=== PATIENT | female | born 1985 | race Caucasian/White ===

== ENCOUNTER → 2017-06-10 | Outpatient (CLI) | payer BC ==
--- NOTE | 2017-06-10 11:53 | RAD ---
Indication: Left neck lump posteriorly. Sonographic interrogation of the area of lump in the posterior left neck was performed. There is a lymph node in the superficial tissues at this location measuring 1.5 x 0.9 x 0.4 cm. No other abnormality is identified. Impression: Small lymph node at the area of palpable abnormality posterior left neck, as described.
== END | disposition home or self-care (01) ==
LOC: US 10:47
PROVIDERS: ATTEND Family Medicine
DX: R22.1 Localized swelling, mass and lump, neck (principal)
CPT/HCPCS: 76536

== ENCOUNTER 2020-10-11 15:30 | Emergency (ER) | payer BC, OTHER ==
[~2020-10-11] VITALS: Ht 154.9 cm; Wt 48.2 kg
[2020-10-11 15:44] VITALS: BP 114/77
[2020-10-11] MEDS ORDERED: DEXAMETHASONE 4 MG TABLET PO ONE (16:00)
[2020-10-11] MEDS ORDERED: ORPHENADRINE CITRATE 60 MG/2 ML VIAL. IM ONE (16:00)
[2020-10-11] MEDS ORDERED: KETOROLAC 30 MG/ML VIAL. IM ONE (16:00)
--- NOTE | 2020-10-11 16:04 | PHYS DOC ---
Past History Past Medical History: Anxiety, Other Additional Past Medical Histor: degenerative disc dz Past Surgical History: , Other Additional Past Surgical Histo: right hand surgery Alcohol Use: None General Adult EDM: Chief Complaint: UPPER EXTREMITY PAIN HPI: HPI: Patient is a [age] year old [sex] who presents with [] Review of Systems: Review of Systems: Constitutional: Denies fever or chills Eyes: Denies change in visual acuity HENT: Denies nasal congestion or sore throat Respiratory: Denies cough or shortness of breath Cardiovascular: Denies chest pain or edema GI: Denies abdominal pain, nausea, vomiting, bloody stools or diarrhea : Denies dysuria Musculoskeletal: Denies back pain or joint pain Integument: Denies rash Neurologic: Denies headache, focal weakness or sensory changes Endocrine: Denies polyuria or polydipsia Lymphatic: Denies swollen glands Psychiatric: Denies depression or anxiety Allergies: Allergies: Allergies Coded Allergies Type Severity Reaction Last Updated Verified Penicillins Allergy Severe anaphylaxis 10/11/20 Yes aspirin Allergy Mild N/V 10/11/20 Yes Physical Exam: PE: Constitutional: Well developed, well nourished, no acute distress, non-toxic appearance. [] HENT: Normocephalic, atraumatic, bilateral external ears normal, oropharynx moist, no oral exudates, nose normal. [] Eyes: PERRLA, EOMI, conjunctiva normal, no discharge. [] Neck: Normal range of motion, no tenderness, supple, no stridor. [] Cardiovascular:Heart rate regular rhythm, no murmur [] Lungs & Thorax: Bilateral breath sounds clear to auscultation [] Abdomen: Bowel sounds normal, soft, no tenderness, no masses, no pulsatile masses. [] Skin: Warm, dry, no erythema, no rash. [] Back: No tenderness, no CVA tenderness. [] Extremities: No tenderness, no cyanosis, no clubbing, ROM intact, no edema. [] Neurologic: Alert and oriented X 3, normal motor function, normal sensory function, no focal deficits noted. [] Psychologic: Affect normal, judgement normal, mood normal. [] Current Patient Data: Vital Signs: Vital Signs Date Time Temp Pulse Resp B/P (MAP) Pulse Ox O2 Delivery O2 Flow Rate FiO2 10/11/20 15:44 98.2 100 20 114/77 (89) 99 Room Air EKG: EKG: [] Radiology/Procedures: Radiology/Procedures: [] Heart Score: Risk Factors: Risk Factors: DM, Current or recent (<one month) smoker, HTN, HLP, family history of CAD, obesity. Risk Scores: Score 0 - 3: 2.5% MACE over next 6 weeks - Discharge Home Score 4 - 6: 20.3% MACE over next 6 weeks - Admit for Clinical Observation Score 7 - 10: 72.7% MACE over next 6 weeks - Early Invasive Strategies Course & Med Decision Making: Course & Med Decision Making Pertinent Labs and Imaging studies reviewed. (See chart for details) [] Dragon Disclaimer: Dragon Disclaimer: This electronic medical record was generated, in whole or in part, using a voice recognition dictation system. Departure Departure: Impression: Primary Impression: Cervical radiculopathy Disposition: 01 DC HOME SELF CARE/HOMELESS Condition: STABLE Referrals: BEA YEPEZ (PCP) Patient Instructions: Arm Sling Use, [id number], Cervical Radiculopathy, [id number] Additional Instructions: ICE areas of discomfort 20 min on then leave off next 20 min. Repeat several times daily as needed for pain for next few days. Use sling for comfort only. Please drop arm out of sling at least 5x daily. Each time do 10x circles in one direction then repeat 10x in other direction. This prevents a "FROZEN SHOULDER Call Dr. Fausto Saucedo (pain management) for further evaluation and treatment. Address: [address] [place] [address], [place] [address] Scripts Tramadol Hcl (TRAMADOL HCL) 50 Mg Tablet 50 MG PO PRN Q6HRS PRN for PAIN, #14 TAB Take each tablet with one (1) regular strength Tylenol 325mg Prov: ANGI BOSS DO 10/11/20 Orphenadrine Citrate (ORPHENADRINE CITRATE) 100 Mg Tablet.er 1 TAB PO BID PRN for MUSCLE PAIN, #14 TAB 0 Refills Prov: ANGI BOSS DO 10/11/20 Prednisone (PREDNISONE) 20 Mg Tablet 2 TAB PO DAILY for Radiculopathy, #8 TAB Start this prescription tomorrow, 10/12/20 Prov: ANGI BOSS DO 10/11/20 ANGI BOSS DO Oct 11, 2020 16:04
[2020-10-11] MEDS ORDERED: TRAM50TA PO (16:07)
[2020-10-11] MEDS ORDERED: ORPH-16 PO (16:07)
[2020-10-11] MEDS ORDERED: PRED20TA PO (16:07)
== END 2020-10-11 16:30 | disposition home or self-care (01) ==
LOC: ER 15:30
DX: M54.12 Radiculopathy, cervical region (principal); F41.9 Anxiety disorder, unspecified; Z88.6 Allergy status to analgesic agent; Z88.0 Allergy status to penicillin
CPT/HCPCS: 96372; 99284; J1885; J2360; J8540

== ENCOUNTER 2020-10-31 09:27 | Emergency (ER) | payer OTHER ==
[~2020-10-31] VITALS: Ht 154.9 cm; Wt 48.2 kg
[~2020-10-31 09:27] MED LIST: ORPH-16 PO; PRED20TA PO; TRAM50TA PO
[2020-10-31 13:05] VITALS: BP 121/73
== END 2020-10-31 13:23 | disposition home or self-care (01) ==
LOC: ER 09:27
DX: F41.9 Anxiety disorder, unspecified (principal); F43.20 Adjustment disorder, unspecified; R00.0 Tachycardia, unspecified; F17.210 Nicotine dependence, cigarettes, uncomplicated; Z88.0 Allergy status to penicillin; Z88.6 Allergy status to analgesic agent
CPT/HCPCS: 36415; 71045; 80053; 80307; 80329; 81001; 81025; 85025; 87426; 93005; 96361; 96374; 99285; C9803; G0480; J2060; J7030; U0003

== ENCOUNTER 2021-01-08 09:10 | Emergency (ER) | payer OTHER ==
[~2021-01-08] VITALS: Ht 154.9 cm; Wt 48.2 kg
[2021-01-08] MEDS ORDERED: diphenhydrAMINE 50 MG/ML VIAL IVP ONE (09:45)
[2021-01-08] MEDS ORDERED: IV NORMAL SALINE 1,000ML 1,000 ML IV ONE (09:45)
[2021-01-08] MEDS ORDERED: METOCLOPRAMIDE HCL 10 MG/2 ML VIAL. IVP ONE (09:45)
[2021-01-08] MEDS ORDERED: ONDANSETRON PF 4 MG/2 ML VIAL. IVP ONE (09:45)
[2021-01-08 09:50] LABS: BASO # 0.2 x10^3/uL (0.0-0.2); BASO % 2 % (0-3); EOS # 0.1 x10^3/uL (0.0-0.7); EOS % 1 % (0-3); HEMATOCRIT 40.2 % (36.0-47.0); HEMOGLOBIN 13.5 g/dL (12.0-15.5); LYMPH # 4.9 x10^3/uL (1.0-4.8); LYMPH % 33 % (24-48); MEAN CORPUSCULAR HEMOGLOBIN 33 pg (25-35); MEAN CORPUSCULAR HGB CONC 34 g/dL (31-37); MEAN CORPUSCULAR VOLUME 98 fL (79-100); MONO # 1.2 x10^3/uL (0.0-1.1); MONO % 9 % (0-9); NEUT # 8.2 x10^3uL (1.8-7.7); NEUT % 56 % (31-73); PLATELET COUNT 393 x10^3/uL (140-400); RED CELL DISTRIBUTION WIDTH 13.8 % (11.5-14.5); WHITE BLOOD COUNT 14.6 x10^3/uL (4.0-11.0)
[2021-01-08 10:38] LABS: CALCIUM 10.3 mg/dL (8.5-10.1); CREATININE 0.7 mg/dL (0.6-1.0); GFR 94.2; POTASSIUM 3.8 mmol/L (3.5-5.1)
[2021-01-08 10:43] LABS: ALBUMIN 4.5 g/dL (3.4-5.0); ALBUMIN/GLOBULIN RATIO 1.1 (1.0-1.7); TOTAL BILIRUBIN 0.5 mg/dL (0.2-1.0); TOTAL PROTEIN 8.5 g/dL (6.4-8.2)
--- NOTE | 2021-01-08 11:07 | PHYS DOC ---
Past History Past Medical History: Anxiety, Depression, Other Additional Past Medical Histor: degenerative disc dz, Bipolar, fibromyalgia Past Surgical History: , Other Additional Past Surgical Histo: right hand surgery, tubal ligation Smoking: Cigarettes Alcohol Use: None Drug Use: None General Adult EDM: Chief Complaint: HEADACHE HPI: HPI: 35-year-old female presents with headache. The patient developed a headache about 2 AM. She has had nausea and vomiting. She gets a headache about once every other week. This headache feels worse. It is mostly in the posterior of her head and the right side. She describes it as a pressure sensation. She denies any falls or trauma. She has photophobia. Denies fever or chills. Review of Systems: Review of Systems: Constitutional: Denies fever or chills Eyes: Denies change in visual acuity HENT: Denies nasal congestion or sore throat Respiratory: Denies cough or shortness of breath Cardiovascular: Denies chest pain or edema GI: Nausea, vomiting. Denies abdominal pain, bloody stools or diarrhea : Denies dysuria Musculoskeletal: Denies back pain or joint pain Integument: Denies rash Neurologic: Headache. Denies focal weakness or sensory changes Endocrine: Denies polyuria or polydipsia Lymphatic: Denies swollen glands Psychiatric: Denies depression or anxiety Current Medications: Current Meds: Current Medications Medications (Trade) Dose Ordered Sig/Lucero Start Time Stop Time Status Last Admin Dose Admin Diphenhydramine HCl (Benadryl) 25 mg 1X ONCE 01/08/21 09:45 01/08/21 09:51 DC 01/08/21 10:06 25 MG Metoclopramide HCl (Reglan Vial) 10 mg 1X ONCE 01/08/21 09:45 01/08/21 09:51 DC 01/08/21 10:05 10 MG Ondansetron HCl (Zofran) 4 mg 1X ONCE 01/08/21 09:45 01/08/21 09:51 DC 01/08/21 10:05 4 MG Sodium Chloride 1,000 ml @ 1,000 mls/hr 1X ONCE 01/08/21 09:45 01/08/21 10:44 DC 01/08/21 10:06 1,000 MLS/HR Allergies: Allergies: Allergies Coded Allergies Type Severity Reaction Last Updated Verified Penicillins Allergy Severe anaphylaxis 10/11/20 Yes aspirin Allergy Mild N/V 10/11/20 Yes Physical Exam: PE: Constitutional: Well developed, well nourished, no acute distress, non-toxic appearance. [] HENT: Normocephalic, atraumatic, bilateral external ears normal, oropharynx moist, no oral exudates, nose normal. [] Eyes: PERRLA, EOMI, conjunctiva normal, no discharge. [] Neck: Normal range of motion, no tenderness, supple, no stridor. [] Cardiovascular: Heart rate regular rhythm, no murmur [] Lungs & Thorax: Bilateral breath sounds clear to auscultation [] Abdomen: Bowel sounds normal, soft, no tenderness, no masses, no pulsatile masses. [] Skin: Warm, dry, no erythema, no rash. [] Back: No tenderness, no CVA tenderness. [] Extremities: No tenderness, no cyanosis, no clubbing, ROM intact, no edema. [] Neurologic: Alert and oriented X 3, normal motor function, normal sensory function, no focal deficits noted. [] Psychologic: Affect normal, judgement normal, mood normal. [] Current Patient Data: Labs: Laboratory Tests Test 01/08/21 09:30 White Blood Count 14.6 x10^3/uL (4.0-11.0) H Red Blood Count 4.10 x10^6/uL (3.50-5.40) Hemoglobin 13.5 g/dL (12.0-15.5) Hematocrit 40.2 % (36.0-47.0) Mean Corpuscular Volume 98 fL (79-100) Mean Corpuscular Hemoglobin 33 pg (25-35) Mean Corpuscular Hemoglobin Concent 34 g/dL (31-37) Red Cell Distribution Width 13.8 % (11.5-14.5) Platelet Count 393 x10^3/uL (140-400) Neutrophils (%) (Auto) 56 % (31-73) Lymphocytes (%) (Auto) 33 % (24-48) Monocytes (%) (Auto) 9 % (0-9) Eosinophils (%) (Auto) 1 % (0-3) Basophils (%) (Auto) 2 % (0-3) Neutrophils # (Auto) 8.2 x10^3uL (1.8-7.7) H Lymphocytes # (Auto) 4.9 x10^3/uL (1.0-4.8) H Monocytes # (Auto) 1.2 x10^3/uL (0.0-1.1) H Eosinophils # (Auto) 0.1 x10^3/uL (0.0-0.7) Basophils # (Auto) 0.2 x10^3/uL (0.0-0.2) Sodium Level 142 mmol/L (136-145) Potassium Level 3.8 mmol/L (3.5-5.1) Chloride Level 105 mmol/L (98-107) Carbon Dioxide Level 24 mmol/L (21-32) Anion Gap 13 (6-14) Blood Urea Nitrogen 19 mg/dL (7-20) Creatinine 0.7 mg/dL (0.6-1.0) Estimated GFR (Cockcroft-Gault) 94.2 BUN/Creatinine Ratio 27 (6-20) H Glucose Level 95 mg/dL (70-99) Calcium Level 10.3 mg/dL (8.5-10.1) H Total Bilirubin 0.5 mg/dL (0.2-1.0) Aspartate Amino Transferase (AST) 33 U/L (15-37) Alanine Aminotransferase (ALT) 49 U/L (14-59) Alkaline Phosphatase 64 U/L (46-116) Total Protein 8.5 g/dL (6.4-8.2) H Albumin 4.5 g/dL (3.4-5.0) Albumin/Globulin Ratio 1.1 (1.0-1.7) Vital Signs: Vital Signs Date Time Temp Pulse Resp B/P (MAP) Pulse Ox O2 Delivery O2 Flow Rate FiO2 01/08/21 09:15 98.7 84 18 162/76 100 Room Air EKG: EKG: [] Radiology/Procedures: Radiology/Procedures: [] Heart Score: C/O Chest Pain: N/A Risk Factors: Risk Factors: DM, Current or recent (<one month) smoker, HTN, HLP, family history of CAD, obesity. Risk Scores: Score 0 - 3: 2.5% MACE over next 6 weeks - Discharge Home Score 4 - 6: 20.3% MACE over next 6 weeks - Admit for Clinical Observation Score 7 - 10: 72.7% MACE over next 6 weeks - Early Invasive Strategies Course & Med Decision Making: Course & Med Decision Making Pertinent Labs and Imaging studies reviewed. (See chart for details) For her headache, I have given the patient a liter normal saline, 10 mg Reglan, 25 mg of Benadryl, 4 mg of Zofran. I have avoided Toradol due to her aspirin allergy. Her labs are unremarkable except for an elevated white count with normal differential. The patient has tolerated ibuprofen in the past so I will give her Toradol 30 mg IV. She is feeling better and is ready to go home. I will discharge her with a prescription for Zofran. She is stable for discharge at this time. [] Dragon Disclaimer: Dragon Disclaimer: This electronic medical record was generated, in whole or in part, using a voice recognition dictation system. Departure Departure: Impression: Primary Impression: Migraine headache Disposition: HOME / SELF CARE / HOMELESS Condition: IMPROVED Referrals: BEA YEPEZ (PCP) Patient Instructions: Migraine Headache, [id number] Scripts Ondansetron (ONDANSETRON ODT) 4 Mg Tab.rapdis 1 TAB PO PRN Q6-8HRS PRN for VOMITING, #16 TAB Prov: LINA SARAVIA DO 01/08/21 LINA SARAVIA DO Jan 08, 2021 11:07
[2021-01-08] MEDS ORDERED: KETOROLAC 30 MG/ML VIAL. IVP ONE (11:30)
[2021-01-08] MEDS ORDERED: ONDA4TAB12 PO (11:36)
[2021-01-08 11:51] VITALS: BP 111/75
== END 2021-01-08 11:49 | disposition home or self-care (01) ==
LOC: ER 09:10
DX: G43.909 Migraine, unspecified, not intractable, without status migrainosus (principal); F41.9 Anxiety disorder, unspecified; F32.9 Major depressive disorder, single episode, unspecified; F17.210 Nicotine dependence, cigarettes, uncomplicated; M79.7 Fibromyalgia; Z88.0 Allergy status to penicillin; Z88.6 Allergy status to analgesic agent
CPT/HCPCS: 36415; 80053; 85025; 96361; 96374; 96375; 99284; J1200; J1885; J2405; J2765; J7030

== ENCOUNTER → 2021-06-20 | Outpatient (CLI) | payer OTHER ==
[~2021-06-20] MED LIST changes: +ONDA4TAB12 PO
--- NOTE | 2021-06-20 15:38 | RAD ---
CT CERVICAL SPINE WO History: Neck pain Comparison: MRI cervical spine 10/23/2015 Technique: Noncontrast CT of the cervical spine. Findings: There are 7 nonrib-bearing cervical vertebral segments. There is no evidence for fracture in the cervical spine. No destructive osseous lesions are seen. Reversal the normal cervical lordosis with apex at C5. No spondylolisthesis. Mild disc space narrowing C4-C5 and C6-C7. Moderate to severe disc space narrowing at C5-C6. Degenera tive disc changes are progressive from 2016. C2-C3: No significant disc or facet disease. C3-C4: No significant disc or facet disease. C4-C5: Mild disc space narrowing and uncovertebral hypertrophy. No significant spinal canal or neurof oraminal stenosis. C5-C6: Moderate to severe disc space narrowing with uncovertebral hypertrophy causing moderate bilate ral neural foraminal stenosis. C6-C7: Mild disc space narrowing and mild uncovertebral hypertrophy. No significant spinal canal or n euroforaminal stenosis. C7-T1: No significant disc or facet disease. Limited evaluation of the soft tissues of the neck and of the upper chest is unremarkable. Impression: 1. Progressive cervical spondylosis greatest at C5-C6 where moderate to severe disc space narrowing and uncovertebral hypertrophy cause moderate bilateral neural foraminal stenosis. Correlate for radic ular symptoms. If there is concern for radiculopathy, recommend cervical MRI for further evaluation. ------- Exposure: One or more of the following individualized dose reduction techniques were utilized for thi s examination: 1. Automated exposure control 2. Adjustment of the mA and/or kV according to patient size 3. Use of iterative reconstruction technique. Electronically signed by: Tank Pedraza MD (06/20/2021 3:36 PM) [facility]
== END ==
LOC: CT 14:41
PROVIDERS: ATTEND Family Medicine
DX: M47.22 Other spondylosis with radiculopathy, cervical region (principal); M48.02 Spinal stenosis, cervical region; M50.30 Other cervical disc degeneration, unspecified cervical region
CPT/HCPCS: 72125

== ENCOUNTER 2021-07-23 16:27 | Emergency (ER) | payer OTHER ==
[~2021-07-23] VITALS: Ht 154.9 cm; Wt 48.2 kg
[2021-07-23 16:34] VITALS: BP 121/90
== END 2021-07-23 17:50 | disposition left against medical advice (07) ==
LOC: ER 16:27
DX: S61.411A Laceration without foreign body of right hand, initial encounter (principal); Z53.21 Procedure and treatment not carried out due to patient leaving prior to being seen by health care provider; W26.8XXA Contact with other sharp object(s), not elsewhere classified, initial encounter; Y93.89 Activity, other specified; Y92.89 Other specified places as the place of occurrence of the external cause; Y99.8 Other external cause status